=== PATIENT | female | born 1950 | race Caucasian/White ===

== ENCOUNTER 2018-03-09 08:39 | Emergency (ER) | payer MEDICARE ==
[2018-03-09] MEDS ORDERED: Ketorolac Tromethamine 60 MG/2 ML VIAL ONE (09:58)
== END 2018-03-09 10:27 | disposition home or self-care (01) ==
LOC: ERS 08:39
DX: M62.830 Muscle spasm of back (principal); M41.9 Scoliosis, unspecified; I10 Essential (primary) hypertension; Z79.899 Other long term (current) drug therapy
CPT/HCPCS: 96372; J1885

== ENCOUNTER 2018-08-29 11:52 | Outpatient (CLI) | payer MEDICARE ==
--- NOTE | 2018-08-29 13:08 | MMO ---
Bilateral MAMMO Bilat Screen [facility]. CLINICAL HISTORY: Patient is 68 years old and is seen for screening. The patient has the following family history of breast cancer: sister. The patient has no personal history of cancer. VIEWS: The views performed were: bilateral craniocaudal with tomosynthesis and bilateral mediolateral oblique with tomosynthesis. MAMMOGRAM FINDINGS: There are scattered fibroglandular densities. There are no suspicious masses, suspicious calcifications, or new areas of architectural distortion. IMPRESSION: THERE IS NO MAMMOGRAPHIC EVIDENCE OF MALIGNANCY. A ROUTINE FOLLOW-UP MAMMOGRAM IN 1 YEAR IS RECOMMENDED. THE RESULTS OF THIS EXAM WERE SENT TO THE PATIENT. ACR BI-RADS Category 1 - Negative MAMMOGRAPHY NOTE: 1. A negative mammogram report should not delay a biopsy if a dominant of clinically suspicious mass is present. 2. Approximately 10% to 15% of breast cancers are not detected by mammography. 3. Adenosis and dense breasts may obscure an underlying neoplasm.
--- NOTE | 2018-08-29 13:11 | RAD ---
THREE VIEWS THORACIC SPINE: HISTORY: Back pain. FINDINGS: AP, lateral, and swimmer's views thoracic spine obtained. Thoracic spine is unremarkable. No evidence of thoracic spine fractures, subluxations, or bony lesio ns seen. IMPRESSION: Normal 3 views thoracic spine. POS: C
--- NOTE | 2018-08-29 13:13 | RAD ---
THREE VIEWS CERVICAL SPINE: HISTORY: Radiculopathy. FINDINGS: AP, lateral, and open mouth odontoid views cervical spine obtained. Images demonstrate some minimal disk space height loss with small anterior and posterior osteophytes at the C5-6 level. This is compatible with minimal C5-6 changes of spondylosis. No evidence of acut e cervical spine fractures or bony lesions seen. IMPRESSION: Minimal C5-6 spondylosis; otherwise, unremarkable. POS: C
== END 2018-08-29 11:53 | disposition home or self-care (01) ==
LOC: BICMAMMO 11:52
PROVIDERS: ATTEND Physician Assistant
DX: Z12.31 Encounter for screening mammogram for malignant neoplasm of breast (principal); M47.22 Other spondylosis with radiculopathy, cervical region; M54.6 Pain in thoracic spine; Z80.3 Family history of malignant neoplasm of breast
CPT/HCPCS: 72040; 72072; 77063; 77067

== ENCOUNTER 2020-05-26 10:02 | Outpatient (CLI) | payer MEDICARE ==
--- NOTE | 2020-05-26 10:57 | MMO ---
Bilateral MAMMO Bilat Screen [facility]. CLINICAL HISTORY: Patient is 70 years old and is seen for screening. The patient has the following family history of breast cancer: sister. The patient has no personal history of cancer. VIEWS: The views performed were: bilateral craniocaudal with tomosynthesis and bilateral mediolateral oblique with tomosynthesis. FILMS COMPARED: The present examination has been compared to a prior imaging study performed at [facility] on 08/29/2018. This study has been interpreted with the assistance of computer-aided detection. MAMMOGRAM FINDINGS: There are scattered fibroglandular densities. There are no suspicious masses, suspicious calcifications, or new areas of architectural distortion. IMPRESSION: THERE IS NO MAMMOGRAPHIC EVIDENCE OF MALIGNANCY. A ROUTINE FOLLOW-UP MAMMOGRAM IN 1 YEAR IS RECOMMENDED. THE RESULTS OF THIS EXAM WERE SENT TO THE PATIENT. ACR BI-RADS Category 1 - Negative MAMMOGRAPHY NOTE: 1. A negative mammogram report should not delay a biopsy if a dominant of clinically suspicious mass is present. 2. Approximately 10% to 15% of breast cancers are not detected by mammography. 3. Adenosis and dense breasts may obscure an underlying neoplasm. Reported by: EUGENIO BOWER MD Electonically Signed: [id number]
== END 2020-05-26 10:03 | disposition home or self-care (01) ==
LOC: BICMAMMO 10:02
PROVIDERS: ATTEND Physician Assistant
DX: Z12.31 Encounter for screening mammogram for malignant neoplasm of breast (principal); Z80.3 Family history of malignant neoplasm of breast
CPT/HCPCS: 77063; 77067

== ENCOUNTER 2022-01-03 23:33 | Inpatient (IN) | payer MEDICARE ==
[2022-01-04 01:37] LABS: Hemoglobin 12.1 g/dL (12.0-16.0); Mean Corpuscular HGB CONC 32.9 g/dL (32.0-36.0); Mean Corpuscular Hemoglobin 31.8 pg (27.0-31.0); Mean Corpuscular Volume 96.8 fL (78.0-98.0); Platelet Count 321 thou/uL (130-400); RBC Distribution Width 13.3 % (11.5-14.5); Red Blood Cell (RBC) Count 3.81 mill/uL (4.20-5.40); White Blood Cell (WBC) Count 23.1 thou/uL (4.8-10.8)
[2022-01-04 01:56] LABS: ALT (SGPT) 32 U/L (8-55); AST (SGOT) 24 U/L (5-34); Albumin 4.4 g/dL (3.4-4.8); Alkaline Phosphatase 104 U/L (40-110); Anion Gap 13 mmol/L (10-20); BUN (Urea Nitrogen) 24 mg/dL (9.8-20.1); Band 1 % (5-11); Bilirubin, Total 0.3 mg/dL (0.2-1.2); Calc. Creatinine Clearance 0 mL/min (70-130); Calcium 9.7 mg/dL (7.8-10.44); Carbon Dioxide 21 mmol/L (23-31); Chloride 108 mmol/L (98-107); Estimated GFR 89; Globulin 2.9 g/dL (2.4-3.5); Glucose 133 mg/dL (80-115); Lymphocytes 8 % (21-51); MDiff Complete? YES; Monocytes 4 % (0-10); Neutrophil 87 % (42-75); Potassium 4.5 mmol/L (3.5-5.1); Protein, Total 7.3 g/dL (5.8-8.1); Sodium 137 mmol/L (136-145)
[2022-01-04 02:19] LABS: CKMB 5.1 ng/mL (0-6.6)
[2022-01-04] MEDS ORDERED: Nitroglycerin 2% Ointment 1 INCH/1 GM Packet ONE (02:30)
[2022-01-04] MEDS ORDERED: Aspirin Chewable 81 MG TAB ONE (02:30)
[2022-01-04] MEDS ORDERED: Enoxaparin Sodium 60 MG/0.6 ML SYRINGE ONE (02:32)
[2022-01-04 02:38] LABS: CK (CPK) 105 U/L (29-168); Lipase 17 U/L (8-78)
[2022-01-04] MEDS ORDERED: Acetaminophen 325 MG TAB PO PRN (04:21)
[2022-01-04] MEDS ORDERED: Nitroglycerin 0.4 MG TAB (25 Tab Bottle) SL PRN (04:21)
[2022-01-04] MEDS ORDERED: Acetaminophen 650 MG Suppository PR PRN (04:21)
[2022-01-04] MEDS ORDERED: Ondansetron ODT 4 MG TAB PO PRN (04:21)
[2022-01-04] MEDS ORDERED: Ondansetron PF 4 MG/2 ML Vial IVP PRN (04:21)
[2022-01-04 05:03] LABS: SARS-CoV-2 NAA Rapid Test Not Detected (NotDetected)
[2022-01-04 05:24] LABS: Troponin I 0.527 ng/mL (< 0.028)
[2022-01-04 07:21] VITALS: BMI 22.8
[2022-01-04] MEDS: Aspirin Chewable 81 MG TAB PO SCH (07:30)
[2022-01-04 08:03] LABS: #Eosinphils 0.1 thou/uL (0.0-0.7); #Lymphocytes 3.1 thou/uL (1.20-3.40); #Monocytes 1.3 thou/uL (0.11-0.59); #Neutrophils 16.1 thou/uL (1.40-6.50); %Basophils 0.1 % (0.0-1.0); %Eosinophils 0.4 % (0.0-10.0); %Lymphocytes 15.1 % (21.0-51.0); %Monocytes 6.1 % (0.0-10.0); %Neutrophils 78.4 % (42.0-75.0); Hemoglobin 11.6 g/dL (12.0-16.0); Mean Corpuscular HGB CONC 31.9 g/dL (32.0-36.0); Mean Corpuscular Hemoglobin 31.4 pg (27.0-31.0); Mean Corpuscular Volume 98.3 fL (78.0-98.0); Mean Platelet Volume 8.2 fL (7.4-10.4); Platelet Count 244 thou/uL (130-400); RBC Distribution Width 13.4 % (11.5-14.5); Red Blood Cell (RBC) Count 3.69 mill/uL (4.20-5.40); White Blood Cell (WBC) Count 20.5 thou/uL (4.8-10.8)
[2022-01-04 08:46] LABS: Troponin I 0.604 ng/mL (< 0.028)
[2022-01-04] MEDS ORDERED: Non-Formulary Item 1 EACH (Telmisartan [Telmisartan] 80 MG Tablet) PO SCH (09:00)
[2022-01-04] MEDS ORDERED: Atorvastatin Calcium 10 MG TAB PO SCH (09:00)
[2022-01-04] MEDS: Losartan 25 MG TAB PO SCH (10:48)
[2022-01-04] MEDS ORDERED: Communication Order-Pharmacy FS SCH (11:15)
[2022-01-04] MEDS: Enoxaparin Sodium 60 MG/0.6 ML SYRINGE SC SCH ×2 (12:18→20:25)
[2022-01-04] MEDS: Nitroglycerin 2% Ointment 1 INCH/1 GM Packet TOP SCH ×2 (13:17→18:37)
[2022-01-04] MEDS ORDERED: Enoxaparin Sodium 80 MG/0.8 ML SYRINGE SC SCH (14:00)
[2022-01-04] MEDS: Melatonin 3 MG TAB PO PRN (20:25)
[2022-01-04] MEDS: Atorvastatin Calcium 40 MG TAB PO SCH (20:25)
[2022-01-05] MEDS: Nitroglycerin 2% Ointment 1 INCH/1 GM Packet TOP SCH ×4 (00:28→18:40)
[2022-01-05 04:11] LABS: #Basophils 0.1 thou/uL (0.0-0.2); #Eosinphils 0.2 thou/uL (0.0-0.7); #Lymphocytes 4.3 thou/uL (1.20-3.40); #Neutrophils 6.4 thou/uL (1.40-6.50); %Basophils 1.2 % (0.0-1.0); %Eosinophils 2.1 % (0.0-10.0); %Lymphocytes 35.7 % (21.0-51.0); %Monocytes 8.1 % (0.0-10.0); Hemoglobin 12.2 g/dL (12.0-16.0); Mean Corpuscular HGB CONC 32.1 g/dL (32.0-36.0); Mean Corpuscular Hemoglobin 31.9 pg (27.0-31.0); Mean Corpuscular Volume 99.3 fL (78.0-98.0); Mean Platelet Volume 8.1 fL (7.4-10.4); Platelet Count 279 thou/uL (130-400); RBC Distribution Width 13.4 % (11.5-14.5); Red Blood Cell (RBC) Count 3.84 mill/uL (4.20-5.40)
[2022-01-05 04:33] LABS: Anion Gap 12 mmol/L (10-20); BUN (Urea Nitrogen) 19 mg/dL (9.8-20.1); Calc. Creatinine Clearance 74 mL/min (70-130); Calcium 8.9 mg/dL (7.8-10.44); Carbon Dioxide 21 mmol/L (23-31); Chloride 108 mmol/L (98-107); Estimated GFR 96; Glucose 90 mg/dL (80-115); Potassium 4.1 mmol/L (3.5-5.1); Sodium 137 mmol/L (136-145)
[2022-01-05] MEDS ORDERED: Fentanyl 100 MCG/2 ML VIAL ONE (06:55)
[2022-01-05] MEDS ORDERED: Lidocaine 1% 50ML VIAL ONE (06:55)
[2022-01-05] MEDS ORDERED: Heparin 10,000 UNITS/ 10 ML VIAL ONE (06:55)
[2022-01-05] MEDS ORDERED: Midazolam HCl 2 mg/2 ml Vial ONE (06:55)
[2022-01-05] MEDS: Losartan 25 MG TAB PO SCH (08:07)
[2022-01-05] MEDS: Aspirin Chewable 81 MG TAB PO SCH (08:07)
[2022-01-05] MEDS ORDERED: Nitroglycerin 0.4 MG TAB (25 Tab Bottle) SL PRN (08:20)
[2022-01-05] MEDS ORDERED: Acetaminophen/Codeine 30-300mg Tablet PO PRN ×2 (08:20)
[2022-01-05] MEDS ORDERED: Sodium Chloride 0.9% 200 ML IV PRN (08:20)
[2022-01-05] MEDS ORDERED: Sodium Chloride 0.9% 1,000 ML IV SCH (08:30)
[2022-01-05] MEDS ORDERED: Communication Order-Pharmacy FS SCH (10:42)
[2022-01-05] MEDS ORDERED: Diazepam 5 MG TAB PO PRN (10:42)
[2022-01-05] MEDS ORDERED: Iopamidol 370 76% 100 ML VIAL ONE (14:23)
[2022-01-05] MEDS: Atorvastatin Calcium 40 MG TAB PO SCH (20:35)
[2022-01-05] MEDS: Melatonin 3 MG TAB PO PRN (20:35)
[2022-01-06] MEDS: Nitroglycerin 2% Ointment 1 INCH/1 GM Packet TOP SCH ×3 (05:19→13:15)
[2022-01-06] MEDS: Losartan 25 MG TAB PO SCH (05:19)
[2022-01-06] MEDS: Aspirin Chewable 81 MG TAB PO SCH (08:48)
[2022-01-06] MEDS ORDERED: fentaNYL Citrate/PF 100 MCG/2 ML SYRINGE ONE ×3 (09:02→10:13)
[2022-01-06] MEDS ORDERED: Midazolam HCl 5 mg/5 ml Vial ONE (09:02)
[2022-01-06] MEDS ORDERED: Albumin 5% 500 ML ONE (09:19)
[2022-01-06] MEDS ORDERED: Dexamethasone 4 mg/ml Vial ONE (09:19)
[2022-01-06] MEDS ORDERED: Bupivacaine PF 0.5% 30 ML VIAL ONE (09:19)
[2022-01-06] MEDS ORDERED: EPINEPHrine 1 MG/ML AMP ONE (09:19)
[2022-01-06] MEDS ORDERED: Sodium Chloride 0.9% 100 ML ONE (10:15)
[2022-01-06] MEDS ORDERED: CEFAZOLIN 2 GM VIAL ONE (10:15)
[2022-01-06] MEDS ORDERED: Aminocaproic Acid 5 GM/20 ML VIAL ONE (10:25)
[2022-01-06] MEDS ORDERED: Protamine Sulfate 250 MG/25 ML VIAL ONE (10:25)
[2022-01-06] MEDS ORDERED: Heparin 5,000 UNITS/ML VIAL ONE (10:25)
[2022-01-06] MEDS ORDERED: Thrombin 5000 UNITS/5 ML VIAL ONE (10:25)
[2022-01-06] MEDS ORDERED: Sodium Bicarb 50 MEQ/50 ML Abboject 8.4% SYRINGE ONE (10:25)
[2022-01-06] MEDS ORDERED: Lidocaine 2% PF 100 mg/5 ml Syringe ONE (10:25)
[2022-01-06] MEDS ORDERED: Rocuronium Bromide 10 MG/ML (10ML VIAL) ONE (10:25)
[2022-01-06] MEDS ORDERED: Magnesium Sulfate 1 GM/2 ML VIAL ONE (10:25)
[2022-01-06] MEDS ORDERED: Mannitol 12.5 GM/50 ML ONE (10:25)
[2022-01-06] MEDS ORDERED: Calcium Chloride 1 GM/10 ML Abboject SYRINGE ONE (10:25)
[2022-01-06] MEDS ORDERED: PROPOFOL 200 MG/20 ML VIAL ONE (10:25)
[2022-01-06] MEDS ORDERED: Cardioplegic Soln 1,000 ML BAG ONE (10:25)
[2022-01-06] MEDS ORDERED: Heparin 30,000 units/30 ml VIAL ONE (10:25)
[2022-01-06] MEDS ORDERED: Papaverine 60 MG/2 ML VIAL ONE (10:25)
[2022-01-06] MEDS ORDERED: Esmolol 100 MG/10 ML VIAL ONE (10:25)
[2022-01-06] MEDS ORDERED: CEFAZOLIN 2 GM in Sodium Chloride 0.9% 100 ML IVPB SCH (10:30)
[2022-01-06] MEDS ORDERED: PHENYLEPHRINE-NS 100 MCG/ML 10 ML SYRINGE ONE (11:53)
[2022-01-06] MEDS ORDERED: Bupivacaine HCl 0.5%/Epinephrine 1:200,000/PF 30 ml Vial ONE (11:53)
[2022-01-06] MEDS ORDERED: Bisacodyl 10 MG SUPP PR PRN (13:34)
[2022-01-06] MEDS ORDERED: Potassium Chloride 20 MEQ/100 ML PREMIX BAG IVPB PRN (13:34)
[2022-01-06] MEDS ORDERED: Morphine 2 MG/ML VIAL SLOW IVP PRN (13:34)
[2022-01-06] MEDS ORDERED: Mag-Al 1200 mg/1200 mg/30 ML UDCUP PO PRN (13:34)
[2022-01-06] MEDS ORDERED: Promethazine HCl 25 MG/ML VIAL IM PRN (13:34)
[2022-01-06] MEDS ORDERED: Acetaminophen 325 MG TAB PO PRN (13:34)
[2022-01-06] MEDS ORDERED: Bisacodyl 5 MG TAB PO PRN (13:34)
[2022-01-06] MEDS ORDERED: Hetastarch 6% 500 ML 500 ML IVPB PRN (13:34)
[2022-01-06] MEDS ORDERED: Nitroglycerin 50 MG/250 ML BOT 250 ML IVPB PRN (13:34)
[2022-01-06] MEDS ORDERED: D5 1/2 NS w/20 mEq KCL 1,000 ML IV SCH (13:34)
[2022-01-06] MEDS ORDERED: Magnesium 2 GM/50 ML(in water) 1 GM in Premix Bag 1 BAG IVPB SCH (13:34)
[2022-01-06] MEDS ORDERED: NOREPINEPHRINE 8 MG/250 ML-D5W 250 ML IVPB PRN (13:34)
[2022-01-06] MEDS ORDERED: Guaifenesin DM 100-10/5 ML UDCUP PO PRN (13:34)
[2022-01-06 13:56] LABS: Actual Bicarbonate (HCO3a) 19.7 mEq/L (22-28); Base Excess (BEa) -4.4 mEq/L (-2.0 to +3.0); CO2 Tension 33.4 mmHg (35.0-45.0); Carboxyhemoglobin (COHb) 0.6 gm% (0.0-3.0); Hemoglobin (Hb) 13.4 g/dL (12.0-16.0); O2 Tension (PaO2), arterial 88.9 mmHg (> 80.0); Potassium - ABG Lab 3.66 mmol/L (3.70-5.30); Puncture Site Arterial Line; pH, Arterial 7.39 (7.35-7.45)
[2022-01-06] MEDS ORDERED: Dextrose 5% in Water 1,000 ML IV PRN (14:00)
[2022-01-06] MEDS ORDERED: Dextrose 50% Abboject 50 ML SYRINGE SLOW IVP PRN (14:00)
[2022-01-06] MEDS ORDERED: HUMULIN R 100 UNITS in Sodium Chloride 0.9% 100 ML IVPB SCH (14:00)
[2022-01-06 14:02] LABS: Hemoglobin 13.1 g/dL (12.0-16.0); Mean Corpuscular HGB CONC 33.1 g/dL (32.0-36.0); Mean Corpuscular Hemoglobin 31.2 pg (27.0-31.0); Mean Corpuscular Volume 94.2 fL (78.0-98.0); Mean Platelet Volume 7.5 fL (7.4-10.4); Platelet Count 187 thou/uL (130-400); RBC Distribution Width 14.1 % (11.5-14.5); Red Blood Cell (RBC) Count 4.19 mill/uL (4.20-5.40); White Blood Cell (WBC) Count 31.7 thou/uL (4.8-10.8)
[2022-01-06 14:12] LABS: INR-International Normal Ratio 1.3; PTT 31.5 sec (22.9-36.1); Prothrombin Time 16.1 sec (12.0-14.7)
[2022-01-06 14:19] LABS: Anion Gap 13 mmol/L (10-20); BUN (Urea Nitrogen) 11 mg/dL (9.8-20.1); Calc. Creatinine Clearance 82 mL/min (70-130); Calcium 8.2 mg/dL (7.8-10.44); Carbon Dioxide 19 mmol/L (23-31); Chloride 115 mmol/L (98-107); Estimated GFR 98; Glucose 160 mg/dL (80-115); Potassium 3.7 mmol/L (3.5-5.1); Sodium 143 mmol/L (136-145)
[2022-01-06 14:24] LABS: Band 26 % (5-11); Eosinophils 2 % (0-10); Lymphocytes 4 % (21-51); MDiff Complete? YES; Monocytes 3 % (0-10); Neutrophil 65 % (42-75); Platelet Morphology Comment Appears Adequate; RBC Morphology Normal
[2022-01-06] MEDS: Insulin Regular 300 UNITS/3 ML VIAL SC PRN ×3 (14:32→20:47)
[2022-01-06] MEDS: Fentanyl 100 MCG/2 ML VIAL SLOW IVP PRN ×2 (15:01→16:55)
[2022-01-06 16:44] LABS: ALV-art Gradient 133.775 mmHg (0-20); Base Excess (BEa) -3.7 mEq/L (-2.0 to +3.0); CO2 Tension 28.5 mmHg (35.0-45.0); Calcium, Ionized (arterial) 1.15 mmol/L (1.12-1.30); Carboxyhemoglobin (COHb) 0.9 gm% (0.0-3.0); Hemoglobin (Hb) 14.3 g/dL (12.0-16.0); O2 Tension (PaO2), arterial 115.8 mmHg (> 80.0); Puncture Site Arterial Line; pH, Arterial 7.44 (7.35-7.45)
[2022-01-06] MEDS: Ketorolac Tromethamine 30 MG/ML VIAL IVP SCH (18:23)
[2022-01-06] MEDS: CEFAZOLIN 2 GM in Sodium Chloride 0.9% 100 ML IVPB SCH (18:24)
[2022-01-06] MEDS: HYDROcodone/Acetaminophen 5/325 mg Tablet PO PRN ×2 (18:35→22:35)
[2022-01-06] MEDS: Ondansetron PF 4 MG/2 ML Vial IVP PRN (18:38)
[2022-01-06 20:11] LABS: Hemoglobin 13.5 g/dL (12.0-16.0)
[2022-01-06 20:33] LABS: Potassium 4.4 mmol/L (3.5-5.1)
[2022-01-06] MEDS: Atorvastatin Calcium 40 MG TAB PO SCH (20:40)
[2022-01-06] MEDS ORDERED: Famotidine/PF 20 mg/2ml Vial SLOW IVP SCH (21:00)
[2022-01-07] MEDS: Ketorolac Tromethamine 30 MG/ML VIAL IVP SCH ×4 (00:04→18:08)
[2022-01-07] MEDS: CEFAZOLIN 2 GM in Sodium Chloride 0.9% 100 ML IVPB SCH ×2 (01:11→10:35)
[2022-01-07] MEDS: Fentanyl 100 MCG/2 ML VIAL SLOW IVP PRN ×2 (01:17→03:12)
[2022-01-07] MEDS: Insulin Regular 300 UNITS/3 ML VIAL SC PRN (05:14)
[2022-01-07] MEDS: HYDROcodone/Acetaminophen 5/325 mg Tablet PO PRN ×3 (05:15→14:57)
[2022-01-07 05:25] LABS: #Lymphocytes 1.2 thou/uL (1.20-3.40); #Monocytes 1.6 thou/uL (0.11-0.59); #Neutrophils 14.8 thou/uL (1.40-6.50); %Basophils 0.1 % (0.0-1.0); %Eosinophils 0.1 % (0.0-10.0); %Lymphocytes 6.6 % (21.0-51.0); %Neutrophils 84.2 % (42.0-75.0); Mean Corpuscular HGB CONC 33.9 g/dL (32.0-36.0); Mean Corpuscular Hemoglobin 31.9 pg (27.0-31.0); Mean Corpuscular Volume 94.1 fL (78.0-98.0); Mean Platelet Volume 7.9 fL (7.4-10.4); Platelet Count 218 thou/uL (130-400); RBC Distribution Width 14.2 % (11.5-14.5); Red Blood Cell (RBC) Count 4.07 mill/uL (4.20-5.40); White Blood Cell (WBC) Count 17.5 thou/uL (4.8-10.8)
[2022-01-07 05:33] LABS: Anion Gap 9 mmol/L (10-20); BUN (Urea Nitrogen) 16 mg/dL (9.8-20.1); Calc. Creatinine Clearance 68 mL/min (70-130); Calcium 8.1 mg/dL (7.8-10.44); Carbon Dioxide 22 mmol/L (23-31); Chloride 110 mmol/L (98-107); Estimated GFR 94; Glucose 133 mg/dL (80-115); Potassium 4.5 mmol/L (3.5-5.1); Sodium 136 mmol/L (136-145)
[2022-01-07] MEDS: Losartan 25 MG TAB PO SCH (08:38)
[2022-01-07] MEDS: Carvedilol 3.125 MG TAB PO SCH ×2 (08:38→18:04)
[2022-01-07] MEDS: Magnesium 2 GM/50 ML(in water) 1 GM in Premix Bag 1 BAG IVPB SCH (08:38)
[2022-01-07] MEDS: Clopidogrel Bisulfate 75 MG TAB PO SCH (08:38)
[2022-01-07] MEDS: Aspirin 81 mg Enteric Coated Tablet PO SCH (08:38)
[2022-01-07] MEDS ORDERED: Aspirin 325 MG TAB PO SCH (09:00)
[2022-01-07] MEDS ORDERED: Bisacodyl 5 MG TAB PO PRN (16:13)
[2022-01-07] MEDS ORDERED: diphenhydrAMINE 25 MG CAP PO PRN (16:13)
[2022-01-07] MEDS ORDERED: Zolpidem Tartrate 5 MG TAB PO PRN (16:13)
[2022-01-07] MEDS ORDERED: Mineral Oil ENEMA PR PRN (16:13)
[2022-01-07] MEDS ORDERED: Mag-Al 1200 mg/1200 mg/30 ML UDCUP PO PRN (16:13)
[2022-01-07] MEDS ORDERED: Bisacodyl 10 MG SUPP PR PRN (16:13)
[2022-01-07] MEDS ORDERED: Nitroglycerin 0.4 MG TAB (25 Tab Bottle) SL PRN (16:13)
[2022-01-07] MEDS: Ondansetron PF 4 MG/2 ML Vial IVP PRN (18:04)
[2022-01-07] MEDS: Atorvastatin Calcium 40 MG TAB PO SCH (21:10)
[2022-01-07] MEDS: Melatonin 3 MG TAB PO PRN (21:10)
[2022-01-08] MEDS: Ketorolac Tromethamine 30 MG/ML VIAL IVP SCH ×4 (00:07→17:40)
[2022-01-08] MEDS: Fentanyl 100 MCG/2 ML VIAL SLOW IVP PRN (00:10)
[2022-01-08] MEDS ORDERED: Amiodarone 450 MG, Admixture Fee 1 EACH in Dextrose 5% in Water 250 ML IVPB SCH (01:15)
[2022-01-08] MEDS ORDERED: Amiodarone 150 MG, Admixture Fee 1 EACH in Dextrose 5% in Water 100 ML IVPB SCH (01:15)
[2022-01-08] MEDS ORDERED: Amiodarone 150 MG/3 ML VIAL IVP SCH (02:00)
[2022-01-08] MEDS ORDERED: Amiodarone In Dextrose 200 ML IVPB SCH (02:00)
[2022-01-08] MEDS: Losartan 25 MG TAB PO SCH (08:03)
[2022-01-08] MEDS: Clopidogrel Bisulfate 75 MG TAB PO SCH (08:03)
[2022-01-08] MEDS: HYDROcodone/Acetaminophen 5/325 mg Tablet PO PRN ×2 (08:03→14:59)
[2022-01-08] MEDS: Carvedilol 3.125 MG TAB PO SCH ×2 (08:03→17:40)
[2022-01-08] MEDS: Magnesium 2 GM/50 ML(in water) 1 GM in Premix Bag 1 BAG IVPB SCH (08:03)
[2022-01-08] MEDS: Aspirin 81 mg Enteric Coated Tablet PO SCH (08:03)
[2022-01-08] MEDS ORDERED: Digoxin 0.5 MG/2 ML AMP ONE (10:13)
[2022-01-08] MEDS ORDERED: Digoxin 0.5 MG/2 ML AMP SLOW IVP SCH (10:15)
[2022-01-08] MEDS ORDERED: Polyethylene Glycol 3350 17 GM Packet PO PRN (12:47)
[2022-01-08] MEDS ORDERED: Docusate 100 MG CAP PO PRN (12:47)
[2022-01-08] MEDS ORDERED: Polyethylene Glycol 3350 17 GM Packet PO SCH (13:00)
[2022-01-08] MEDS: Atorvastatin Calcium 40 MG TAB PO SCH (20:59)
[2022-01-09] MEDS: Ketorolac Tromethamine 30 MG/ML VIAL IVP SCH ×4 (00:21→17:25)
[2022-01-09 04:49] LABS: Hemoglobin 11.8 g/dL (12.0-16.0); Mean Corpuscular HGB CONC 34.4 g/dL (32.0-36.0); Mean Corpuscular Volume 96.1 fL (78.0-98.0); Mean Platelet Volume 8.2 fL (7.4-10.4); Platelet Count 188 thou/uL (130-400); RBC Distribution Width 13.7 % (11.5-14.5); Red Blood Cell (RBC) Count 3.57 mill/uL (4.20-5.40); White Blood Cell (WBC) Count 15.3 thou/uL (4.8-10.8)
[2022-01-09 05:12] LABS: Anion Gap 11 mmol/L (10-20); BUN (Urea Nitrogen) 16 mg/dL (9.8-20.1); Calc. Creatinine Clearance 72 mL/min (70-130); Calcium 8.5 mg/dL (7.8-10.44); Carbon Dioxide 24 mmol/L (23-31); Chloride 106 mmol/L (98-107); Estimated GFR 95; Glucose 101 mg/dL (80-115); Potassium 4.5 mmol/L (3.5-5.1); Sodium 136 mmol/L (136-145)
[2022-01-09] MEDS ORDERED: Senokot S 8.6-50 MG TAB PO PRN (08:49)
[2022-01-09] MEDS: Aspirin 81 mg Enteric Coated Tablet PO SCH (09:40)
[2022-01-09] MEDS: Losartan 25 MG TAB PO SCH (09:40)
[2022-01-09] MEDS: Montelukast Sodium 10 mg Tablet PO SCH (09:40)
[2022-01-09] MEDS: Polyethylene Glycol 3350 17 GM Packet PO SCH (09:40)
[2022-01-09] MEDS: Clopidogrel Bisulfate 75 MG TAB PO SCH (09:40)
[2022-01-09] MEDS: Carvedilol 3.125 MG TAB PO SCH ×2 (09:40→17:25)
[2022-01-09] MEDS: Guaifenesin DM 100-10/5 ML UDCUP PO PRN (15:14)
[2022-01-09] MEDS: Amiodarone 200 MG TAB PO SCH ×2 (15:16→21:21)
[2022-01-09] MEDS: Atorvastatin Calcium 40 MG TAB PO SCH (21:21)
[2022-01-10] MEDS: Guaifenesin DM 100-10/5 ML UDCUP PO PRN (04:57)
[2022-01-10 05:00] LABS: Cardiac Risk 2.9 (Less than 4.5)
[2022-01-10] MEDS: Polyethylene Glycol 3350 17 GM Packet PO SCH (08:49)
[2022-01-10] MEDS: Clopidogrel Bisulfate 75 MG TAB PO SCH (08:50)
[2022-01-10] MEDS: Aspirin 81 mg Enteric Coated Tablet PO SCH (08:50)
[2022-01-10] MEDS: Carvedilol 3.125 MG TAB PO SCH ×2 (08:50→16:06)
[2022-01-10] MEDS: Amiodarone 200 MG TAB PO SCH ×3 (08:50→22:05)
[2022-01-10] MEDS: Montelukast Sodium 10 mg Tablet PO SCH (08:50)
[2022-01-10] MEDS: Losartan 25 MG TAB PO SCH (08:50)
[2022-01-10] MEDS: HYDROcodone/Acetaminophen 5/325 mg Tablet PO PRN ×2 (13:10→22:06)
[2022-01-10] MEDS: Atorvastatin Calcium 40 MG TAB PO SCH (22:06)
[2022-01-10] MEDS: Melatonin 3 MG TAB PO PRN (22:06)
[2022-01-11] MEDS: Ondansetron PF 4 MG/2 ML Vial IVP PRN (04:28)
[2022-01-11] MEDS: Losartan 25 MG TAB PO SCH ×2 (09:00→09:22)
[2022-01-11] MEDS: Amiodarone 200 MG TAB PO SCH ×2 (09:00→09:22)
[2022-01-11] MEDS: Montelukast Sodium 10 mg Tablet PO SCH (09:22)
[2022-01-11] MEDS: Clopidogrel Bisulfate 75 MG TAB PO SCH (09:22)
[2022-01-11] MEDS: Aspirin 81 mg Enteric Coated Tablet PO SCH (09:22)
[2022-01-11] MEDS: Polyethylene Glycol 3350 17 GM Packet PO SCH (09:22)
[2022-01-11] MEDS: Carvedilol 3.125 MG TAB PO SCH ×2 (09:22→10:44)
[2022-01-11] MEDS ORDERED: Sodium Chloride 0.9% 250 ML 250 ML IVPB SCH (10:00)
[2022-01-11] MEDS ORDERED: Amiodarone 200 MG TAB PO SCH (21:00)
[2022-01-11] MEDS: Melatonin 3 MG TAB PO PRN (21:16)
[2022-01-11] MEDS: Atorvastatin Calcium 40 MG TAB PO SCH (21:16)
[2022-01-11] MEDS ORDERED: Metoprolol Tartrate 5 MG/5 ML VIAL IVP SCH (23:45)
[2022-01-11] MEDS: HYDROcodone/Acetaminophen 5/325 mg Tablet PO PRN (23:54)
[2022-01-12 00:32] LABS: Magnesium 2.2 mg/dL (1.6-2.6)
[2022-01-12] MEDS: Montelukast Sodium 10 mg Tablet PO SCH (09:19)
[2022-01-12] MEDS: Clopidogrel Bisulfate 75 MG TAB PO SCH (09:19)
[2022-01-12] MEDS: Aspirin 81 mg Enteric Coated Tablet PO SCH (09:19)
[2022-01-12] MEDS: Polyethylene Glycol 3350 17 GM Packet PO SCH (09:19)
[2022-01-12] MEDS ORDERED: Lactated Ringer's 500 ML IV SCH (11:45)
[2022-01-12 15:50] LABS: Actual Bicarbonate (HCO3a) 22.3 mEq/L (22-28); Analyzer IN Cardio OR; Base Excess (BEa) -1.1 mEq/L (-2.0 to +3.0); CO2 Tension 33.1 mmHg (35.0-45.0); Calcium, Ionized (arterial) 1.15 mmol/L (1.12-1.30); Carboxyhemoglobin (COHb) 0.4 gm% (0.0-3.0); Hemoglobin (Hb) 12.2 g/dL (12.0-16.0); O2 Tension (PaO2), arterial 455.8 mmHg (> 80.0); Potassium - ABG Lab 3.66 mmol/L (3.70-5.30); pH, Arterial 7.45 (7.35-7.45)
[2022-01-12 15:50] LABS: Analyzer IN Cardio OR; Base Excess (BEa) -5.8 mEq/L (-2.0 to +3.0); CO2 Tension 40.5 mmHg (35.0-45.0); Carboxyhemoglobin (COHb) 0.1 gm% (0.0-3.0); Hemoglobin (Hb) 10.7 g/dL (12.0-16.0); O2 Tension (PaO2), arterial 483.5 mmHg (> 80.0); pH, Arterial 7.31 (7.35-7.45)
[2022-01-12 15:51] LABS: Actual Bicarbonate (HCO3a) 18.9 mEq/L (22-28); Analyzer IN Cardio OR; Base Excess (BEa) -4.4 mEq/L (-2.0 to +3.0); CO2 Tension 27.5 mmHg (35.0-45.0); Calcium, Ionized (arterial) 0.99 mmol/L (1.12-1.30); Carboxyhemoglobin (COHb) 0.7 gm% (0.0-3.0); Hemoglobin (Hb) 7.1 g/dL (12.0-16.0); O2 Tension (PaO2), arterial 380.7 mmHg (> 80.0); Potassium - ABG Lab 4.15 mmol/L (3.70-5.30); pH, Arterial 7.46 (7.35-7.45)
[2022-01-12 15:51] LABS: Actual Bicarbonate (HCO3a) 24.3 mEq/L (22-28); Analyzer IN Cardio OR; CO2 Tension 32.5 mmHg (35.0-45.0); Calcium, Ionized (arterial) 0.98 mmol/L (1.12-1.30); Carboxyhemoglobin (COHb) 0.9 gm% (0.0-3.0); Hemoglobin (Hb) 6.8 g/dL (12.0-16.0); O2 Tension (PaO2), arterial 371.3 mmHg (> 80.0); Potassium - ABG Lab 4.23 mmol/L (3.70-5.30); pH, Arterial 7.49 (7.35-7.45)
[2022-01-12 15:52] LABS: Puncture Site Arterial Line
[2022-01-12 15:52] LABS: Actual Bicarbonate (HCO3a) 24.7 mEq/L (22-28); Analyzer IN Cardio OR; Base Excess (BEa) 0.2 mEq/L (-2.0 to +3.0); CO2 Tension 39.4 mmHg (35.0-45.0); Calcium, Ionized (arterial) 1.08 mmol/L (1.12-1.30); Carboxyhemoglobin (COHb) 0.1 gm% (0.0-3.0); Hemoglobin (Hb) 9.3 g/dL (12.0-16.0); O2 Tension (PaO2), arterial 422.4 mmHg (> 80.0); Potassium - ABG Lab 3.83 mmol/L (3.70-5.30); pH, Arterial 7.42 (7.35-7.45)
[2022-01-12 15:52] LABS: Puncture Site Arterial Line
[2022-01-12 15:53] LABS: Puncture Site Arterial Line
[2022-01-12 15:53] LABS: Puncture Site Arterial Line
[2022-01-12 15:54] LABS: Puncture Site Arterial Line
[2022-01-12] MEDS: Atorvastatin Calcium 40 MG TAB PO SCH (20:55)
[2022-01-12] MEDS ORDERED: Amiodarone 200 MG TAB PO SCH (21:00)
[2022-01-13] MEDS: Clopidogrel Bisulfate 75 MG TAB PO SCH (08:48)
[2022-01-13] MEDS: Aspirin 81 mg Enteric Coated Tablet PO SCH (08:48)
[2022-01-13] MEDS: Montelukast Sodium 10 mg Tablet PO SCH (08:48)
[2022-01-13] MEDS: Polyethylene Glycol 3350 17 GM Packet PO SCH (08:48)
[2022-01-13 10:49] LABS: #Basophils 0.1 thou/uL (0.0-0.2); #Eosinphils 0.3 thou/uL (0.0-0.7); #Lymphocytes 1.5 thou/uL (1.20-3.40); #Monocytes 1.3 thou/uL (0.11-0.59); #Neutrophils 13.3 thou/uL (1.40-6.50); %Basophils 0.5 % (0.0-1.0); %Eosinophils 1.7 % (0.0-10.0); %Lymphocytes 9.1 % (21.0-51.0); %Monocytes 7.7 % (0.0-10.0); Hemoglobin 12.4 g/dL (12.0-16.0); Mean Corpuscular HGB CONC 32.3 g/dL (32.0-36.0); Mean Corpuscular Hemoglobin 31.2 pg (27.0-31.0); Mean Corpuscular Volume 96.7 fL (78.0-98.0); Mean Platelet Volume 7.5 fL (7.4-10.4); Platelet Count 366 thou/uL (130-400); RBC Distribution Width 13.2 % (11.5-14.5); Red Blood Cell (RBC) Count 3.96 mill/uL (4.20-5.40); White Blood Cell (WBC) Count 16.4 thou/uL (4.8-10.8)
[2022-01-13 11:02] LABS: Anion Gap 14 mmol/L (10-20); BUN (Urea Nitrogen) 12 mg/dL (9.8-20.1); Calc. Creatinine Clearance 64 mL/min (70-130); Calcium 9.4 mg/dL (7.8-10.44); Carbon Dioxide 20 mmol/L (23-31); Chloride 104 mmol/L (98-107); Estimated GFR 86; Glucose 132 mg/dL (80-115); Potassium 4.1 mmol/L (3.5-5.1); Sodium 134 mmol/L (136-145)
[2022-01-13 13:36] VITALS: TEMP 98.2
[2022-01-13 14:03] VITALS: BP 111/55
== END 2022-01-13 15:00 | disposition home or self-care (01) | DRG 234 ==
LOC: ERS 23:33 → ERHOLD 01-04 03:10 → IMCU/EMU 01-04 05:56 → CCU 01-06 10:34 → 2NO 01-08 14:36
PROVIDERS: ADMIT Thoracic Surgery (Cardiothoracic Vascular Surgery); ATTEND Student in an Organized Health Care Education/Training Program
PROC: 4A023N7 Measurement of Cardiac Sampling and Pressure, Left Heart, Percutaneous Approach (ICD-10-PCS; 2022-01-05)
PROC: B2111ZZ Fluoroscopy of Multiple Coronary Arteries using Low Osmolar Contrast (ICD-10-PCS; 2022-01-05)
PROC: B2151ZZ Fluoroscopy of Left Heart using Low Osmolar Contrast (ICD-10-PCS; 2022-01-05)
PROC: 02100Z9 Bypass Coronary Artery, One Artery from Left Internal Mammary, Open Approach (ICD-10-PCS; principal; 2022-01-06)
PROC: 021109W Bypass Coronary Artery, Two Arteries from Aorta with Autologous Venous Tissue, Open Approach (ICD-10-PCS; 2022-01-06)
PROC: 06BQ4ZZ Excision of Left Saphenous Vein, Percutaneous Endoscopic Approach (ICD-10-PCS; 2022-01-06)
PROC: 5A1221Z Performance of Cardiac Output, Continuous (ICD-10-PCS; 2022-01-06)
DX: I21.4 Non-ST elevation (NSTEMI) myocardial infarction (principal); Z20.822 Contact with and (suspected) exposure to COVID-19; I10 Essential (primary) hypertension; G40.909 Epilepsy, unspecified, not intractable, without status epilepticus; D72.829 Elevated white blood cell count, unspecified; I73.9 Peripheral vascular disease, unspecified; I87.2 Venous insufficiency (chronic) (peripheral); I25.110 Atherosclerotic heart disease of native coronary artery with unstable angina pectoris; E78.00 Pure hypercholesterolemia, unspecified; J45.20 Mild intermittent asthma, uncomplicated; I48.91 Unspecified atrial fibrillation; K59.00 Constipation, unspecified; Z88.2 Allergy status to sulfonamides; I95.9 Hypotension, unspecified; Z88.8 Allergy status to other drugs, medicaments and biological substances; Z79.82 Long term (current) use of aspirin; Z79.899 Other long term (current) drug therapy; Z90.710 Acquired absence of both cervix and uterus; Z79.51 Long term (current) use of inhaled steroids; Z82.49 Family history of ischemic heart disease and other diseases of the circulatory system
CPT/HCPCS: 36415; 36416; 36430; 71045; 80048; 80053; 80061; 82550; 82553; 82805; 83690; 83735; 83880; 84443; 84484; 85025; 85027; 85610; 85730; 86850; 86900; 86901; 87811; 93005; 93010; 93306; 93458; 93798; 94002; 94150; 96372; 97139; 99152; C1751; C1769; C1894; J0171; J0282; J0690; J1100; J1160; J1642; J1644; J1650; J1815; J1885; J2001; J2150; J2250; J2405; J2440; J2704; J2720; J3010; J3370; J3475; J3480; J3490; J7050; J7070; J7120; P9016; P9045; Q9967; S0017; S0020; S0028; U0002

== ENCOUNTER 2022-01-16 10:03 | Emergency (ER) | payer MEDICARE ==
[2022-01-16] MEDS ORDERED: Ketorolac Tromethamine 30 MG/ML VIAL ONE (10:30)
[2022-01-16] MEDS ORDERED: Lorazepam 2 MG/ML VIAL ONE (10:33)
[2022-01-16 10:42] LABS: #Basophils 0.1 thou/uL (0.0-0.2); #Eosinphils 0.1 thou/uL (0.0-0.7); #Lymphocytes 1.8 thou/uL (1.20-3.40); #Monocytes 1.1 thou/uL (0.11-0.59); #Neutrophils 14.3 thou/uL (1.40-6.50); %Basophils 0.6 % (0.0-1.0); %Eosinophils 0.8 % (0.0-10.0); %Lymphocytes 10.3 % (21.0-51.0); %Monocytes 6.3 % (0.0-10.0); Hemoglobin 12.8 g/dL (12.0-16.0); Mean Corpuscular HGB CONC 32.9 g/dL (32.0-36.0); Mean Corpuscular Hemoglobin 31.1 pg (27.0-31.0); Mean Corpuscular Volume 94.4 fL (78.0-98.0); Mean Platelet Volume 7.3 fL (7.4-10.4); Platelet Count 483 thou/uL (130-400); RBC Distribution Width 13.1 % (11.5-14.5); Red Blood Cell (RBC) Count 4.13 mill/uL (4.20-5.40); White Blood Cell (WBC) Count 17.4 thou/uL (4.8-10.8)
[2022-01-16 11:02] LABS: ALT (SGPT) 29 U/L (8-55); AST (SGOT) 20 U/L (5-34); Albumin 3.7 g/dL (3.4-4.8); Alkaline Phosphatase 139 U/L (40-110); Anion Gap 16 mmol/L (10-20); BUN (Urea Nitrogen) 16 mg/dL (9.8-20.1); Bilirubin, Total 1.1 mg/dL (0.2-1.2); Calc. Creatinine Clearance 0 mL/min (70-130); Calcium 9.6 mg/dL (7.8-10.44); Carbon Dioxide 18 mmol/L (23-31); Chloride 103 mmol/L (98-107); Estimated GFR 95; Globulin 3.3 g/dL (2.4-3.5); Glucose 111 mg/dL (80-115); Potassium 4.5 mmol/L (3.5-5.1); Sodium 132 mmol/L (136-145)
[2022-01-16 12:03] LABS: CKMB 1.2 ng/mL (0-6.6)
== END 2022-01-16 11:36 | disposition home or self-care (01) ==
LOC: ERS 10:03
DX: M54.2 Cervicalgia (principal); I10 Essential (primary) hypertension; Z95.1 Presence of aortocoronary bypass graft
CPT/HCPCS: 36415; 80053; 82553; 84484; 85025; 93005; 96372; J1885; J2060

== ENCOUNTER 2022-01-27 11:04 | Observation (INO) | payer MEDICARE ==
[2022-01-27] MEDS ORDERED: Ondansetron PF 4 MG/2 ML Vial ONE (11:42)
[2022-01-27 12:30] LABS: #Basophils 0.1 thou/uL (0.0-0.2); #Eosinphils 0.2 thou/uL (0.0-0.7); #Lymphocytes 1.1 thou/uL (1.20-3.40); #Monocytes 0.6 thou/uL (0.11-0.59); #Neutrophils 10.1 thou/uL (1.40-6.50); %Basophils 0.7 % (0.0-1.0); %Eosinophils 1.5 % (0.0-10.0); %Lymphocytes 9.3 % (21.0-51.0); %Monocytes 5.2 % (0.0-10.0); %Neutrophils 83.3 % (42.0-75.0); Hemoglobin 13.3 g/dL (12.0-16.0); Mean Corpuscular HGB CONC 32.3 g/dL (32.0-36.0); Mean Corpuscular Hemoglobin 31.1 pg (27.0-31.0); Mean Corpuscular Volume 96.4 fL (78.0-98.0); Mean Platelet Volume 7.2 fL (7.4-10.4); Platelet Count 410 thou/uL (130-400); RBC Distribution Width 12.9 % (11.5-14.5); Red Blood Cell (RBC) Count 4.29 mill/uL (4.20-5.40); White Blood Cell (WBC) Count 12.1 thou/uL (4.8-10.8)
[2022-01-27 12:44] LABS: ALT (SGPT) 18 U/L (8-55); AST (SGOT) 17 U/L (5-34); Albumin 4.2 g/dL (3.4-4.8); Alkaline Phosphatase 182 U/L (40-110); Anion Gap 14 mmol/L (10-20); BUN (Urea Nitrogen) 13 mg/dL (9.8-20.1); Bilirubin, Total 0.7 mg/dL (0.2-1.2); Calc. Creatinine Clearance 0 mL/min (70-130); Calcium 9.8 mg/dL (7.8-10.44); Carbon Dioxide 23 mmol/L (23-31); Chloride 106 mmol/L (98-107); Estimated GFR 84; Glucose 100 mg/dL (80-115); Potassium 4.9 mmol/L (3.5-5.1); Protein, Total 7.2 g/dL (5.8-8.1); Sodium 138 mmol/L (136-145)
[2022-01-27 14:50] LABS: Bilirubin Negative (Negative); Blood, Urine Negative (Negative); Clarity Clear (Clear); Glucose, Urine (Dipstick) Normal (Negative); Ketone, Urine Negative (Negative); Leukocyte Negative Leu/uL (Negative); Nitrite Negative (Negative); Protein, Urine (Dipstick) Negative (Neg-Trace); Urobilinogen Normal mg/dL (Less than 2); pH, Urine 7.5 (5.0-9.0)
[2022-01-27 16:12] LABS: Troponin I 0.029 ng/mL (< 0.028)
[2022-01-27] MEDS ORDERED: Senokot S 8.6-50 MG TAB PO PRN (17:27)
[2022-01-27] MEDS ORDERED: Ondansetron ODT 4 MG TAB PO PRN (17:27)
[2022-01-27] MEDS ORDERED: Acetaminophen 325 MG TAB PO PRN (17:27)
[2022-01-27 18:28] VITALS: BMI 22.6
[2022-01-27 21:17] LABS: Troponin I 0.013 ng/mL (< 0.028)
[2022-01-27] MEDS ORDERED: Albuterol 200 PUFF (6.7GM INHALER) INH PRN (21:22)
[2022-01-28 04:30] LABS: #Basophils 0.1 thou/uL (0.0-0.2); #Eosinphils 0.4 thou/uL (0.0-0.7); #Lymphocytes 1.9 thou/uL (1.20-3.40); #Monocytes 0.8 thou/uL (0.11-0.59); #Neutrophils 5.7 thou/uL (1.40-6.50); %Eosinophils 4.8 % (0.0-10.0); %Lymphocytes 20.8 % (21.0-51.0); %Neutrophils 64.3 % (42.0-75.0); Hemoglobin 11.8 g/dL (12.0-16.0); Mean Corpuscular Hemoglobin 30.9 pg (27.0-31.0); Mean Corpuscular Volume 96.3 fL (78.0-98.0); Mean Platelet Volume 7.1 fL (7.4-10.4); Platelet Count 375 thou/uL (130-400); RBC Distribution Width 12.9 % (11.5-14.5); Red Blood Cell (RBC) Count 3.83 mill/uL (4.20-5.40); White Blood Cell (WBC) Count 8.9 thou/uL (4.8-10.8)
[2022-01-28 05:04] LABS: Anion Gap 12 mmol/L (10-20); BUN (Urea Nitrogen) 14 mg/dL (9.8-20.1); Calc. Creatinine Clearance 62 mL/min (70-130); Calcium 9.4 mg/dL (7.8-10.44); Carbon Dioxide 21 mmol/L (23-31); Chloride 106 mmol/L (98-107); Estimated GFR 88; Glucose 95 mg/dL (80-115); Potassium 4.2 mmol/L (3.5-5.1); Sodium 135 mmol/L (136-145)
[2022-01-28] MEDS ORDERED: FLU VACC QS2022-23(65YR UP)/PF 240 MCG/0.7 ML SYRINGE IM ONE (09:00)
[2022-01-28] MEDS ORDERED: Montelukast Sodium 10 mg Tablet PO SCH (09:00)
[2022-01-28] MEDS ORDERED: Clopidogrel Bisulfate 75 MG TAB PO SCH (09:00)
[2022-01-28] MEDS ORDERED: Aspirin 81 mg Enteric Coated Tablet PO SCH (09:00)
[2022-01-28] MEDS ORDERED: Bisacodyl 5 MG TAB PO SCH (12:30)
[2022-01-28 15:26] VITALS: BP 127/59; TEMP 98.3
[2022-01-28] MEDS ORDERED: Atorvastatin Calcium 40 MG TAB PO SCH (21:00)
[2022-01-28] MEDS ORDERED: Losartan 25 MG TAB PO SCH (21:00)
== END 2022-01-28 16:40 | disposition home or self-care (01) ==
LOC: ERS 11:04 → 2SW 16:41
PROVIDERS: ADMIT Internal Medicine; ATTEND Internal Medicine
DX: R53.1 Weakness (principal); R42 Dizziness and giddiness; K59.00 Constipation, unspecified; E87.1 Hypo-osmolality and hyponatremia; I10 Essential (primary) hypertension; G40.909 Epilepsy, unspecified, not intractable, without status epilepticus; J45.909 Unspecified asthma, uncomplicated; I25.10 Atherosclerotic heart disease of native coronary artery without angina pectoris; I25.2 Old myocardial infarction; Z23 Encounter for immunization; Z79.02 Long term (current) use of antithrombotics/antiplatelets; Z79.82 Long term (current) use of aspirin; Z79.899 Other long term (current) drug therapy; Z88.8 Allergy status to other drugs, medicaments and biological substances; Z88.2 Allergy status to sulfonamides; Z91.018 Allergy to other foods; Z91.048 Other nonmedicinal substance allergy status; Z95.1 Presence of aortocoronary bypass graft; Z20.822 Contact with and (suspected) exposure to COVID-19
CPT/HCPCS: 71045; 74019; 80048; 80053; 81003; 84484 ×2; 85025 ×2; 86850; 86900; 86901; 90662; 93005; 96374; 97535; 99285; G0008; G0378 ×3; U0003; U0005; 36415; 82274; 90471; J2405

== ENCOUNTER 2022-03-03 06:56 | Observation (INO) | payer MEDICARE ==
[2022-03-03 07:46] LABS: #Basophils 0.1 thou/uL (0.0-0.2); #Eosinphils 0.2 thou/uL (0.0-0.7); #Lymphocytes 0.7 thou/uL (1.20-3.40); #Monocytes 0.7 thou/uL (0.11-0.59); #Neutrophils 7.2 thou/uL (1.40-6.50); %Basophils 1.1 % (0.0-1.0); %Eosinophils 2.6 % (0.0-10.0); %Lymphocytes 7.5 % (21.0-51.0); %Monocytes 7.5 % (0.0-10.0); %Neutrophils 81.4 % (42.0-75.0); Mean Corpuscular HGB CONC 33.7 g/dL (32.0-36.0); Mean Corpuscular Hemoglobin 32.6 pg (27.0-31.0); Mean Corpuscular Volume 96.6 fl (78.0-98.0); Mean Platelet Volume 7.5 fL (7.4-10.4); Platelet Count 248 10x3/uL (130-400); RBC Distribution Width 13.4 % (11.5-14.5); Red Blood Cell (RBC) Count 3.68 mill/uL (4.20-5.40); White Blood Cell (WBC) Count 8.8 10x3/uL (4.8-10.8)
[2022-03-03] MEDS ORDERED: Dexamethasone 10 MG/ML VIAL ONE (07:55)
[2022-03-03 08:19] LABS: ALT (SGPT) 20 U/L (8-55); AST (SGOT) 16 U/L (5-34); Alkaline Phosphatase 115 U/L (40-110); Anion Gap 15 mmol/L (10-20); BUN (Urea Nitrogen) 12 mg/dL (9.8-20.1); Bilirubin, Total 0.8 mg/dL (0.2-1.2); Calc. Creatinine Clearance 0 mL/min (70-130); Calcium 9.4 mg/dL (7.8-10.44); Carbon Dioxide 22 mmol/L (23-31); Chloride 105 mmol/L (98-107); Estimated GFR 73; Globulin 2.4 g/dL (2.4-3.5); Glucose 121 mg/dL (80-115); Potassium 4.3 mmol/L (3.5-5.1); Protein, Total 6.4 g/dL (5.8-8.1); Sodium 138 mmol/L (136-145)
[2022-03-03 08:37] LABS: SARS-CoV-2 NAA Rapid Test Not Detected (NotDetected)
[2022-03-03 10:39] LABS: Magnesium 2.1 mg/dL (1.6-2.6)
[2022-03-03] MEDS ORDERED: Acetaminophen 325 MG TAB PO PRN (11:45)
[2022-03-03] MEDS ORDERED: Ondansetron PF 4 MG/2 ML Vial IVP PRN (11:45)
[2022-03-03] MEDS ORDERED: Calcium Carbonate 500 MG ChewTAB PO PRN (11:45)
[2022-03-03 12:10] VITALS: BMI 22.6
[2022-03-03 12:40] LABS: Troponin I 0.027 ng/mL (< 0.028)
[2022-03-03] MEDS ORDERED: Furosemide 20 MG/2 ML VIAL SLOW IVP SCH (14:00)
[2022-03-03] MEDS ORDERED: Oseltamivir 75 MG CAP PO SCH (15:00)
[2022-03-03] MEDS ORDERED: Cepastat Lozenges 1 LOZ PO PRN (15:01)
[2022-03-03] MEDS ORDERED: Polyethylene Glycol 3350 17 GM Packet PO PRN (15:01)
[2022-03-03 15:15] LABS: Troponin I 0.024 ng/mL (< 0.028)
[2022-03-03] MEDS ORDERED: Albuterol Sulfate 2.5 mg/3 ml Neb NEB PRN (15:26)
[2022-03-03] MEDS ORDERED: Benzonatate 100 MG CAP PO SCH (15:45)
[2022-03-03] MEDS: Guaifenesin DM 100-10/5 ML UDCUP PO SCH ×2 (16:35→23:24)
[2022-03-03] MEDS: Benzonatate 100 MG CAP PO SCH (20:26)
[2022-03-03] MEDS: Atorvastatin Calcium 40 MG TAB PO SCH (20:26)
[2022-03-03] MEDS: Oseltamivir 75 MG CAP PO SCH (20:26)
[2022-03-03] MEDS: Atenolol 25 MG TAB PO SCH (20:27)
[2022-03-03] MEDS: Montelukast Sodium 10 mg Tablet PO SCH (20:27)
[2022-03-03] MEDS: Famotidine 20 MG TAB PO SCH (20:27)
[2022-03-03] MEDS ORDERED: guaiFENesin ER 600 MG TAB PO SCH (21:00)
[2022-03-04 05:00] LABS: #Lymphocytes 0.5 thou/uL (1.20-3.40); #Monocytes 0.9 thou/uL (0.11-0.59); #Neutrophils 9.3 thou/uL (1.40-6.50); %Basophils 0.3 % (0.0-1.0); %Eosinophils 0.1 % (0.0-10.0); %Lymphocytes 4.8 % (21.0-51.0); %Monocytes 8.1 % (0.0-10.0); %Neutrophils 86.7 % (42.0-75.0); Hemoglobin 10.6 g/dL (12.0-16.0); Mean Corpuscular HGB CONC 31.5 g/dL (32.0-36.0); Mean Corpuscular Hemoglobin 30.4 pg (27.0-31.0); Mean Corpuscular Volume 96.3 fl (78.0-98.0); Mean Platelet Volume 7.8 fL (7.4-10.4); Platelet Count 258 10x3/uL (130-400); RBC Distribution Width 13.5 % (11.5-14.5); Red Blood Cell (RBC) Count 3.49 mill/uL (4.20-5.40); White Blood Cell (WBC) Count 10.7 10x3/uL (4.8-10.8)
[2022-03-04] MEDS: Guaifenesin DM 100-10/5 ML UDCUP PO SCH ×4 (05:34→23:48)
[2022-03-04 05:43] LABS: ALT (SGPT) 18 U/L (8-55); AST (SGOT) 17 U/L (5-34); Albumin 3.8 g/dL (3.4-4.8); Alkaline Phosphatase 96 U/L (40-110); Anion Gap 17 mmol/L (10-20); BUN (Urea Nitrogen) 16 mg/dL (9.8-20.1); Bilirubin, Total 0.6 mg/dL (0.2-1.2); Calc. Creatinine Clearance 58 mL/min (70-130); Calcium 9.4 mg/dL (7.8-10.44); Carbon Dioxide 21 mmol/L (23-31); Chloride 103 mmol/L (98-107); Estimated GFR 79; Globulin 2.8 g/dL (2.4-3.5); Glucose 161 mg/dL (80-115); Magnesium 2.2 mg/dL (1.6-2.6); Potassium 3.5 mmol/L (3.5-5.1); Protein, Total 6.6 g/dL (5.8-8.1); Sodium 137 mmol/L (136-145)
[2022-03-04] MEDS ORDERED: Enoxaparin Sodium 40 MG/0.4 ML SYRINGE SC SCH (09:00)
[2022-03-04] MEDS: Benzonatate 100 MG CAP PO SCH ×3 (10:03→21:08)
[2022-03-04] MEDS: Furosemide 20 MG TAB PO SCH ×2 (10:03→13:17)
[2022-03-04] MEDS: Famotidine 20 MG TAB PO SCH ×2 (10:03→21:08)
[2022-03-04] MEDS: Oseltamivir 75 MG CAP PO SCH ×2 (10:03→21:08)
[2022-03-04] MEDS: Aspirin 81 mg Enteric Coated Tablet PO SCH (10:03)
[2022-03-04] MEDS: Loratadine 10 MG TAB PO SCH (10:03)
[2022-03-04] MEDS: Atenolol 25 MG TAB PO SCH (21:08)
[2022-03-04] MEDS: Atorvastatin Calcium 40 MG TAB PO SCH (21:09)
[2022-03-04] MEDS: Montelukast Sodium 10 mg Tablet PO SCH (21:09)
[2022-03-05] MEDS: Guaifenesin DM 100-10/5 ML UDCUP PO SCH ×2 (05:31→11:42)
[2022-03-05] MEDS: Aspirin 81 mg Enteric Coated Tablet PO SCH (08:33)
[2022-03-05] MEDS: Loratadine 10 MG TAB PO SCH (08:33)
[2022-03-05] MEDS: Famotidine 20 MG TAB PO SCH (08:33)
[2022-03-05] MEDS: Benzonatate 100 MG CAP PO SCH ×2 (08:33→14:56)
[2022-03-05] MEDS: Oseltamivir 75 MG CAP PO SCH (08:33)
[2022-03-05] MEDS: Furosemide 20 MG TAB PO SCH ×2 (10:21→13:49)
[2022-03-05 11:54] VITALS: TEMP 98
[2022-03-05 12:21] VITALS: BP 122/60
== END 2022-03-05 15:21 | disposition home or self-care (01) ==
LOC: ERS 06:56 → 2SW 11:37
PROVIDERS: ADMIT Internal Medicine; ATTEND Internal Medicine
DX: J10.1 Influenza due to other identified influenza virus with other respiratory manifestations (principal); I11.0 Hypertensive heart disease with heart failure; I50.33 Acute on chronic diastolic (congestive) heart failure; R53.1 Weakness; G40.909 Epilepsy, unspecified, not intractable, without status epilepticus; E78.00 Pure hypercholesterolemia, unspecified; J45.909 Unspecified asthma, uncomplicated; I25.2 Old myocardial infarction; I25.10 Atherosclerotic heart disease of native coronary artery without angina pectoris; Z79.82 Long term (current) use of aspirin; Z79.899 Other long term (current) drug therapy; Z88.2 Allergy status to sulfonamides; Z88.8 Allergy status to other drugs, medicaments and biological substances; Z91.018 Allergy to other foods; Z91.048 Other nonmedicinal substance allergy status; Z95.1 Presence of aortocoronary bypass graft; Z20.822 Contact with and (suspected) exposure to COVID-19
CPT/HCPCS: 0240U; 71045; 80053 ×2; 83735 ×2; 83880; 84484 ×2; 85025 ×2; 93005; 93798 ×3; 94640 ×3; 99285; 36415; 96374; G0378; J1100; J1940; J7620

== ENCOUNTER 2022-08-23 11:04 | Outpatient (CLI) | payer MEDICARE | END 2022-08-23 11:05 | disposition home or self-care (01) | LOC: BICMAMMO 11:04 | PROVIDERS: ATTEND Physician Assistant | DX: Z12.31 Encounter for screening mammogram for malignant neoplasm of breast (principal) | CPT/HCPCS: 77063; 77067 ==

== ENCOUNTER 2022-11-23 14:27 | Inpatient (IN) | payer MEDICARE ==
[2022-11-23] MEDS ORDERED: Aspirin Chewable 81 MG TAB ONE (15:01)
[2022-11-23 15:28] LABS: #Basophils 0.1 thou/uL (0.0-0.2); #Eosinphils 0.2 thou/uL (0.0-0.7); #Monocytes 0.6 thou/uL (0.11-0.59); #Neutrophils 8.5 thou/uL (1.40-6.50); %Basophils 1.1 % (0.0-1.0); %Eosinophils 1.6 % (0.0-10.0); %Lymphocytes 13.7 % (21.0-51.0); %Monocytes 5.7 % (0.0-10.0); %Neutrophils 77.4 % (42.0-75.0); Hematocrit 40.1 % (36.0-47.0); Hemoglobin 12.9 g/dL (12.0-16.0); Mean Corpuscular HGB CONC 32.2 g/dL (32.0-36.0); Mean Corpuscular Hemoglobin 30.1 pg (27.0-31.0); Mean Corpuscular Volume 93.7 fl (78.0-98.0); Mean Platelet Volume 9.8 fL (7.4-10.4); Platelet Count 280 10x3/uL (130-400); RBC Distribution Width 12.8 % (11.5-14.5); Red Blood Cell (RBC) Count 4.28 mill/uL (4.20-5.40)
[2022-11-23 15:42] LABS: PTT 28.2 sec (22.9-36.1); Prothrombin Time 13.9 sec (12.0-14.7)
[2022-11-23 15:59] LABS: ALT (SGPT) 22 U/L (8-55); AST (SGOT) 20 U/L (5-34); Albumin 4.3 g/dL (3.4-4.8); Alkaline Phosphatase 116 U/L (40-110); Anion Gap 14 mmol/L (10-20); BUN (Urea Nitrogen) 19 mg/dL (9.8-20.1); Bilirubin, Total 0.4 mg/dL (0.2-1.2); Calc. Creatinine Clearance 0 mL/min (70-130); Calcium 9.5 mg/dL (7.8-10.44); Carbon Dioxide 22 mmol/L (23-31); Chloride 107 mmol/L (98-107); Estimated GFR 88; Globulin 2.7 g/dL (2.4-3.5); Glucose 88 mg/dL (80-115); Potassium 4.2 mmol/L (3.5-5.1); Sodium 139 mmol/L (136-145)
[2022-11-23 17:24] LABS: CKMB 1.9 ng/mL (0-6.6)
[2022-11-23] MEDS ORDERED: Bisacodyl 5 MG TAB PO PRN (17:57)
[2022-11-23] MEDS ORDERED: Ondansetron ODT 4 MG TAB PO PRN (17:57)
[2022-11-23] MEDS ORDERED: Acetaminophen 650 MG Suppository PR PRN (17:57)
[2022-11-23] MEDS ORDERED: Senokot S 8.6-50 MG TAB PO PRN (17:57)
[2022-11-23] MEDS ORDERED: Ondansetron PF 4 MG/2 ML Vial IVP PRN (17:57)
[2022-11-23] MEDS ORDERED: Acetaminophen 325 MG TAB PO PRN (17:57)
[2022-11-23] MEDS ORDERED: Nitroglycerin 0.4 MG TAB (25 Tab Bottle) SL PRN (20:34)
[2022-11-23 21:41] LABS: Troponin I 0.262 ng/mL (< 0.028)
[2022-11-23] MEDS ORDERED: Electrolyte Replacement Protocol FS SCH (22:15)
[2022-11-23 23:25] VITALS: BMI 21.1
[2022-11-24] MEDS: Famotidine 20 MG TAB PO SCH ×3 (00:04→20:54)
[2022-11-24 04:24] LABS: #Basophils 0.1 thou/uL (0.0-0.2); #Eosinphils 0.3 thou/uL (0.0-0.7); #Monocytes 0.8 thou/uL (0.11-0.59); %Basophils 1.2 % (0.0-1.0); %Eosinophils 3.2 % (0.0-10.0); %Neutrophils 57.3 % (42.0-75.0); Hemoglobin 12.7 g/dL (12.0-16.0); Mean Corpuscular HGB CONC 32.6 g/dL (32.0-36.0); Mean Corpuscular Hemoglobin 29.7 pg (27.0-31.0); Mean Corpuscular Volume 91.3 fl (78.0-98.0); Mean Platelet Volume 10.5 fL (7.4-10.4); Platelet Count 287 10x3/uL (130-400); RBC Distribution Width 12.7 % (11.5-14.5); Red Blood Cell (RBC) Count 4.27 mill/uL (4.20-5.40); White Blood Cell (WBC) Count 8.7 10x3/uL (4.8-10.8)
[2022-11-24 04:39] LABS: Hemoglobin A1c 5.3 % (4.0-6.0)
[2022-11-24 05:08] LABS: LDL Cholesterol, Calculated 81 mg/dL
[2022-11-24 05:15] LABS: Triglycerides 80 mg/dL (Less than 150)
[2022-11-24 05:23] LABS: Anion Gap 14 mmol/L (10-20); BUN (Urea Nitrogen) 17 mg/dL (9.8-20.1); Calc. Creatinine Clearance 58 mL/min (70-130); Calcium 9.4 mg/dL (7.8-10.44); Carbon Dioxide 22 mmol/L (23-31); Cardiac Risk 2.9 (Less than 4.5); Chloride 106 mmol/L (98-107); Cholesterol 154 mg/dl (< 200 Desired); Estimated GFR 90; Glucose 77 mg/dL (80-115); HDL Cholesterol 53 mg/dL (>60 Neg Risk); Magnesium 2.2 mg/dL (1.6-2.6); Potassium 4.3 mmol/L (3.5-5.1); Sodium 138 mmol/L (136-145)
[2022-11-24 12:42] LABS: Troponin I 0.077 ng/mL (< 0.028)
[2022-11-24] MEDS ORDERED: Atorvastatin Calcium 40 MG TAB PO SCH (21:00)
[2022-11-25 05:06] LABS: #Basophils 0.1 thou/uL (0.0-0.2); #Eosinphils 0.3 thou/uL (0.0-0.7); #Monocytes 0.7 thou/uL (0.11-0.59); #Neutrophils 4.1 thou/uL (1.40-6.50); %Basophils 1.6 % (0.0-1.0); %Eosinophils 4.4 % (0.0-10.0); %Lymphocytes 30.7 % (21.0-51.0); %Monocytes 8.8 % (0.0-10.0); %Neutrophils 54.2 % (42.0-75.0); Hematocrit 39.9 % (36.0-47.0); Mean Corpuscular HGB CONC 32.6 g/dL (32.0-36.0); Mean Corpuscular Hemoglobin 29.6 pg (27.0-31.0); Mean Corpuscular Volume 90.9 fl (78.0-98.0); Mean Platelet Volume 10.4 fL (7.4-10.4); Platelet Count 291 10x3/uL (130-400); RBC Distribution Width 12.5 % (11.5-14.5); Red Blood Cell (RBC) Count 4.39 mill/uL (4.20-5.40); White Blood Cell (WBC) Count 7.6 10x3/uL (4.8-10.8)
[2022-11-25 05:32] LABS: Anion Gap 13 mmol/L (10-20); BUN (Urea Nitrogen) 18 mg/dL (9.8-20.1); Calc. Creatinine Clearance 61 mL/min (70-130); Calcium 9.8 mg/dL (7.8-10.44); Carbon Dioxide 22 mmol/L (23-31); Chloride 106 mmol/L (98-107); Estimated GFR 93; Glucose 111 mg/dL (80-115); Sodium 137 mmol/L (136-145)
[2022-11-25] MEDS ORDERED: Losartan 25 MG TAB PO SCH (09:00)
[2022-11-25] MEDS ORDERED: Aspirin 81 mg Enteric Coated Tablet PO SCH (09:00)
[2022-11-25] MEDS: Famotidine 20 MG TAB PO SCH (09:16)
[2022-11-25 12:00] VITALS: TEMP 98.2
[2022-11-25 16:14] VITALS: BP 117/58
== END 2022-11-25 17:50 | disposition home or self-care (01) | DRG 282 ==
LOC: ERS 14:27 → 2NO 19:30 → OBSVTOIN 11-24 11:32
PROVIDERS: ADMIT Student in an Organized Health Care Education/Training Program; ATTEND Internal Medicine
DX: I11.0 Hypertensive heart disease with heart failure (principal); I21.A1 Myocardial infarction type 2; I50.32 Chronic diastolic (congestive) heart failure; J44.9 Chronic obstructive pulmonary disease, unspecified; E78.5 Hyperlipidemia, unspecified; I25.10 Atherosclerotic heart disease of native coronary artery without angina pectoris; E78.00 Pure hypercholesterolemia, unspecified; Z90.710 Acquired absence of both cervix and uterus; Z79.82 Long term (current) use of aspirin; Z95.1 Presence of aortocoronary bypass graft; Z82.49 Family history of ischemic heart disease and other diseases of the circulatory system; Z91.048 Other nonmedicinal substance allergy status; Z88.2 Allergy status to sulfonamides; Z88.8 Allergy status to other drugs, medicaments and biological substances; Z91.018 Allergy to other foods
CPT/HCPCS: 36415; 71045; 80048; 80053; 80061; 82553; 83036; 83735; 83880; 84443; 84484; 85025; 85610; 85730; 93005; 93306; 94760; 96372; G0378; J1650; J2405

== ENCOUNTER 2023-05-30 10:55 | Outpatient (CLI) | payer MEDICARE | END 2023-05-30 10:56 | disposition home or self-care (01) | LOC: BICMAMMO 10:55 | PROVIDERS: ATTEND Physician Assistant | DX: Z13.820 Encounter for screening for osteoporosis (principal); M81.0 Age-related osteoporosis without current pathological fracture; Z78.0 Asymptomatic menopausal state | CPT/HCPCS: 77080 ==